=== PATIENT | female | born 1940 | race Caucasian/White ===

== ENCOUNTER → 2017-03-08 | Outpatient (CLI) | payer OTHER ==
--- NOTE | 2017-03-08 14:13 | MAMMOGRAPHY REPORT ---
BILATERAL DIGITAL SCREENING MAMMOGRAM TOMOSYNTHESIS WITH CAD: 03/08/2017 CLINICAL HISTORY: Routine screening. TECHNIQUE: Breast tomosynthesis in addition to standard 2D mammography was performed. Current study was also evaluated with a Computer Aided Detection (CAD) system. COMPARISON: Comparison is made to exams dated: 03/13/2016 mammogram, 02/29/2016 mammogram, 02/25/2015 mammogram, 01/28/2013 mammogram, 02/19/2014 mammogram, and 01/24/2012 mammogram - [facility] enter. BREAST COMPOSITION: There are scattered areas of fibroglandular density in both breasts. FINDINGS: No suspicious masses, calcifications, or areas of architectural distortion are noted in ei ther breast. There has been no significant interval change compared to prior exams. Linear scar ni ers denote scars on bilateral superior breasts. A biopsy marker clip is again noted in the left medi al breast. A few scattered bilateral benign-appearing calcifications are again noted. Nodular asymm etries in the left superior breast on the MLO view are stable dating back to at least the 2008 exam. IMPRESSION: ACR BI-RADS CATEGORY 2: BENIGN There is no mammographic evidence of malignancy. A 1 year screening mammogram is recommended. The pa tient will receive written notification of the results. Approximately 10% of breast cancers are not detected with mammography. A negative mammographic report should not delay biopsy if a clinically suggestive mass is present. Megan Rico M.D. /:03/08/2017 12:19:41 Paper Carrier: Ankur MIRANDA)(Dorie), [facility] letter sent: Normal 1/2 BI-RADS Code: ACR BI-RADS Category 2: Benign
== END | disposition home or self-care (01) ==
LOC: C.MAMM 10:05
PROVIDERS: ATTEND Family Medicine
DX: Z12.31 Encounter for screening mammogram for malignant neoplasm of breast (principal)

== ENCOUNTER → 2017-04-01 | Outpatient (CLI) | payer OTHER ==
--- NOTE | 2017-04-01 16:08 | DIAGNOSTIC IMAGING REPORT ---
CERVICAL WITHOUT CONTRAST HISTORY: Neuropathy CERVICAL RADICULOPATHY TECHNIQUE: Multiplanar multisequence MRI of the cervical spine was performed without the use of contrast. COMPARISON STUDY: None. FINDINGS: Signal characteristics of the vertebral bodies are unremarkable. There are considerable degenerative disc changes throughout the entire cervical region. Osteophytic narrowing of the bulk of the neural foramina is present bilaterally. C2-C3: Mild broad-based disc bulge. No significant impact with the cervical cord. Mild osteophytic narrowing left neural foramina. C3-C4: Mild broad-based disc herniation. Moderate to rather significant osteophytic narrowing of the neuroforamina bilaterally. C4-C5: Osteophytic narrowing of the left and to lesser extent right neural foramina. Slight broad-based disc bulge showing contact with but no significant deformity of the cervical cord. C5-C6: Mild broad-based bulging disc with minimal impact anterior cervical cord. Moderate osteophytic narrowing neuroforamina bilaterally. C6-C7: Broad-based left central disc herniation. Mild impact left central aspect anterior cervical cord. Significant narrowing of the left and to lesser extent right neural foramina. C7-T1: Moderate osteophytic narrowing right neuroforamina. IMPRESSION: 1. Considerable degenerative disc change at the entire cervical region. 2. Osteophytic and/or bulging disc narrowing of multiple left as well as right neural foramina at multiple levels. 3. Multilevel broad-based bulging disc and/or mild disc herniations with minimal impact with anterior cervical cord. 4. No evidence for major compromise of the spinal canal. 5. Somewhat limited study due to considerable patient motion The above report was generated using voice recognition software. It may contain grammatical, syntax or spelling errors. Electronically signed by: Lai Lorenzo M.D. 04/01/2017 4:07 PM Dictated Date/Time: 04/01/2017 4:01 PM
== END | disposition home or self-care (01) ==
LOC: C.MRIBC 14:34
PROVIDERS: ATTEND Pain Medicine Interventional Pain Medicine
DX: M47.22 Other spondylosis with radiculopathy, cervical region (principal); M50.20 Other cervical disc displacement, unspecified cervical region